=== PATIENT | male | born 1985 | race Caucasian/White ===

== ENCOUNTER 2024-10-30 15:59 | Outpatient (REF) | payer OTHER, SELFPAY ==
[2024-10-30 17:19] LABS: Erythrocyte Sedimentation Rate 2 MM/HR (0-15)
[2024-10-30 17:30] LABS: Thyroid Stimulating Hormone 2.06 uIU/mL (0.32-4.0)
--- OUTSIDE RECORDS SUMMARY | 2024-10-30 18:28 | XMS_ITS | Clinical Summary ---
Author Organization Formerly [facility] Address [address] [place] [address] Care Team Providers Care Evaluation Analyst Name Role Phone Pcp, No Primary Care Provider Unavailabl e Allergies No known active allergies Immunizations Immunization Administration Dates Next Due Hepatitis B 05/28/2020,07/16/2019,05/30/2019 Social History Tobacco Use Types Packs/Day Years Used Date Smoking Tobacco: Never Assessed Sex and Gender Information Value Date Recorded Sex Assigned at Not on file Legal Sex Male 7:56 AM EST Gender Identity Not on file Sexual Orientation Not on file Plan of Treatment Health Maintenance Due Date Last Done Comments Hepatitis C Virus Screening 1985 HIV Screening 1998 DTaP/Tdap/Td Vaccines (1 - Tdap) 2004 COVID-19 Vaccine (2023-2 5 season) 2024 Hepatitis B Vaccines Completed 05/28/2020, 07/16/2019, 05/30/2019 HPV Vaccines Aged Out No longer eligi ble based on patient's age to complete this topic Pneumococcal Vaccine: Pediatric (0-5 Years) and At-Risk Patients (6 to 49 Years) Aged Out No longer eligible b ased on patient's age to complete this topic Care Teams Evaluation Analyst Relationship Specialty Start Date End Date Pcp, No PCP - General General Medicine 09/13/16
--- OUTSIDE RECORDS SUMMARY | 2024-10-30 18:28 | XMS_ITS | Clinical Summary ---
Author Organization [facility] Address [address] [place] [address] Care Team Providers Care Hatchery Attendant Name Role Phone Unavailable Primary Care Provider Unavailabl e Source Comments PLEASE NOTE, if this patient is a minor, it may be UNLAWFUL to discuss sensitive information that is contained in these records (such as FAMILY PLANNING, MENTAL HEALTH or SUBSTANCE ABUSE) with the minor patient's parent or other person without the patient's specific authorization.[facility] Immunizations Immunization Administration Dates Next Due Moderna COVID-19 Vaccine, re d cap blue label, 12+ Primary Series 11/23/2020,10/26/2020 Social History Tobacco Use Types Packs/Day Years Used Date Smoking Tobacco: Never Assessed Social Connections Answer Date Recorded Social Connections and Isolation 0 10/26/2020 Financial Resource Strain Answer Date R ecorded Financial Resource Strain 0 2020 Stress Answer Date Recorded Stress 0 10/26/2020 Physical Activity Answer Date Recorded Physical Activity 0 10/26/2020 Food Insecurity Answer Date Recorded Food 0 10/26/2020 Transportation Needs Answer Date Record ed Transportation 0 10/26/2020 Housing Stability Answer Date Recorded Housing 0 10/26/2020 Safety and Environment Answer Date Tyrone rded Safety 0 10/26/2020 Utilities Answer Date Recorded Utilities 0 10/26/2020 Employment Answer Date Recorded Employment 0 10/26/2020 Sex and Gender Information Value Date Recorded Sex Assigned at Not on file Legal Sex Male 10:10 AM PDT Gender Identity Not on file Sexual Orientation Not on file Plan of Treatment Health Maintenance Due Date Last Done Comments Anxiety Screening 1985 Diabetes Screening 1985 Hepatitis C Screening 1985 Tobacco Screening 1985 HIV Screening 2000 Hypertension Screening (#1) 12/23/2003 Imm-DTaP/Tdap/Td (1 - Tdap) 2004 Imm-Hepatitis B (1 of 3 - 19 + 3-dose series) 2004 Vbo-FOCKS-17 ( season) 03/10/202411/23/ 021, 10/26/2020 Imm-Influenza (#1) 2024 Alcohol and Drug Screen 07/10/2024 Depression Annual Screen 07/10/2024 Insurance [facility] Member Subscriber Plan / Payer (Ef fective 2012-Present) Name:Tyshawn Duncan Relation to Subscriber:Self Name:Tyshawn Duncan Payer ID:[id number] Type:Indemnity Address: [facility] [id number] [place] [address]
--- OUTSIDE RECORDS SUMMARY | 2024-10-30 18:28 | XMS_ITS | Clinical Summary ---
Author Organization 175 [facility] Address [address] [place] [address] Phone Care Team Providers Care Collator Name Role Phone Jonathon Chavez MD Primary Care Provider [phone] Allergies No known active allergies Medications loperamide (IMODIUM) 2 mg capsule Take 1 Capsule by mouth 4 times daily as needed for Diarrhea. 4 Active naproxen (NAPROSYN) 500 mg tablet Take 1 Tablet by mouth 2 times daily as needed for Pain 10/23/19 25 Discontinu ed(Therapy completed) Active Problems Problem Noted Date Diagnosed Date Irritable bowel syndrome with diarrhea Mixed hyperlipidemia 11/24/2023 Transaminitis 11/24/2023 Vitamin D deficiency 11/24/2023 Encounters Date Type Department Care Team Description 10/22/2024 8:30 AM EDT Consult Endocrinology - [address] [phone] Lyubov Toussaint MD Decreased libido; Low testosterone 10/22/2024 7:30 AM EDT - 10/22/2024 11:59 PM EDT Hospital Encounter Radiology Department - [address] [phone] Fatty liver Discharge Disposition: Home or Self Care 10/01/2024 Telephone Gastroenterology - [place] [facility] [address] [place] [address] Christopher Childs PA 09/25/2024 9:23 AM EDT - 09/25/2024 11:59 PM EDT Hospital Encounter [facility] MRI [address] [place] [address] Decreased butt maker strength Discharge Disposition: Home or Self Care 09/10/2024 10:00 AM EST Consult Orthopedic Surgery - [place] 175 [facility] [address] [place] [address] Adrianna Blevins PA Decreased butt maker strength 09/03/2024 8:30 AM EST Office Visit Adult Medicine [address] [phone] Gwen Mims PA Adult general medical examination (Primary Dx); Mixed hyperlipidemia; Decreased libido; Irritable bowel syndrome with diarrhea; Transaminitis; Decreased butt maker strength; Multiple atypical skin moles; Low testosterone from Last 3 Months Immunizations Name Administration Dates Next Due Td Tetanus diptheria, preser vative free (Tenivac) 7yo and older 09/03/2024 Surgical History Surgery Date Site/Laterality Comments OTHER SURGICAL HISTORY 08/2006 PROCEDURE: HISTORICAL ARM SURGERY; COMMENT: left arm plate 6 screws Medical History Medical History Date Comments Hyperlipidemia DX:Hyperlipidemi a Irritable bowel syndrome DX:Irri table bowel syndrome Elevated liver enzymes DX:Elevat ed liver enzymes Family history of Crohn's disease DX:Family history of Crohn's disease Social History Tobacco Use Types Packs/Day Years Used Date Smoking Tobacco: Never Tobacco Cessation:Counseling Given: Not Answered Sex and Gender Information Value Date Recorded Sex Assigned at Not on file Legal Sex Male 2:37 PM EST Gender Identity Not on file Sexual Orientation Not on file Obstetrics History Last Filed Vital Signs Vital Sign Reading Time Taken Comments Blood Pressure 118/64 10/22/2024 8:36 AM EDT C Pulse 60 10/22/2024 8:36 AM EDT Temperature 36.3 ??C (97.3 ??F) 10/22/2024 8:36 AM ED T Respiratory Rate 18 09/03/2024 8:52 AM EST Oxygen Saturation 97% 10/22/2024 8:36 AM EDT Inhaled Oxygen Concentration - - Weight 118 kg (259 lb 3.2 oz) 10/22/2024 8:36 AM EDT Height 190.5 cm (6' 3 ) 10/22/2024 8:36 AM EDT Body Mass Index 32.4 10/22/2024 8:36 AM EDT Plan of Treatment Upcoming Encounters Date Type Department Care Team (Late st Contact Info) Description 12/05/2024 4:30 PM EDT Office Visit [facility] [address] [place] [address] Lyubov Toussaint MD [address] [place] [address] 01/14/2025 4:15 PM EDT Appointment [facility] Neurodiagnostic [address] [place] [address] 03/03/2025 8:00 AM EDT Office Visit Adult Medicine [facility] [address] [place], [place] [phone] Jonathon Chavez MD [address] [place] [phone] Health Maintenance Due Date Last Done Comments Pneumococcal Vaccine: Pediatrics (0 to 5 Years) and At-Risk Patients (6 to 64 Years) (1 of 2 - PCV) 2004 COVID-19 Vaccine (3 - Modern a risk series) 12/21/2020 11/23/2020, 10/26/2020 Depression Screening 08/27/2022 Social Influencers of Health Screening 08/27/2022 Influenza Vaccine (Season Ended) 2025 Cholesterol Screening (Lipid Panel) 09/03/2029 09/03/2024, 11/23/2023, 11/23/2023 DTaP,Tdap,and Td Vaccines (2 - Td or Tdap) 09/03/2034 09/03/2024 Hepatitis B Vaccines Completed 05/28/2020, 07/16/2019, 05/30/2019 Hepatitis C Screening Completed 09/03/2024 HIB Vaccines Aged Out No longer eligi ble based on patient's age to complete this topic HIV Screening Discontinued HPV Vaccines Aged Out No longer eligi ble based on patient's age to complete this topic Hepatitis A Vaccines Aged Out No long er eligible based on patient's age to complete this topic IPV Vaccines Aged Out No longer eligi ble based on patient's age to complete this topic MMR Vaccines Aged Out No longer eligi ble based on patient's age to complete this topic Meningococcal ACWY Vaccine Aged Out N o longer eligible based on patient's age to complete this topic Meningococcal B Vaccine Aged Out No l onger eligible based on patient's age to complete this topic RSV Immunization Patients Under 20 months Aged Out No longer eligible based on patient's age to complete this topic Varicella Vaccines Aged Out No longer eligible based on patient's age to complete this topic Procedures Procedure Name Priority Date/Time Associated Diagnosis Comments US ABDOMEN LIMITED Routine 10/22/2024 7: 56 AM EDT Fatty liver MR CERVICAL SPINE WO CONTRAST Routine 09/25/2024 10:56 AM EDT Decreased butt maker strength XR CERVICAL SPINE 4-5 VIEWS Routine 09/10/2024 10:48 AM EST Pain XR FOREARM BILAT Routine 09/10/2024 10:4 8 AM EST Pain CBC WITH AUTO DIFFERENTIAL Routine 09/03/2024 10:00 AM EST Adult general medical examination Mixed hyperlipidemia Decreased libido CBC AND DIFFERENTIAL Routine 09/03/2024 10:00 AM EST Adult general medical examination Mixed hyperlipidemia Decreased libido COMPREHENSIVE METABOLIC PANEL Routine 09/03/2024 10:00 AM EST Adult general medical examination Mixed hyperlipidemia Decreased libido THYROID STIMULATING HORMONE WITH REFLEX TO FREE T4 AND FREE T3 Routine 09/03/2024 10:00 AM EST Adult general medical examination Mixed hyperlipidemia Decreased libido LIPID PANEL WITH REFLEX TO DIRECT LDL Routine 09/03/2024 10:00 AM EST Adult general medical examination Mixed hyperlipidemia Decreased libido TESTOSTERONE FREE, BIOAVAILABLE AND TOTAL Routine 09/03/2024 10:00 AM EST Decreased libido HEPATITIS C ANTIBODY Routine 09/03/2024 10:00 AM EST Adult general medical examination from Last 3 Months Results * US Abdomen Limited (10/22/2024 7:56 AM EDT) Anatomical Region Laterality Modality Body Ultrasound 10/22/2024 10:2 7 AM EDT Impressions 10/22/2024 10:30 AM EDT 1. Hepatic steatosis -------- FINAL REPORT -------- Dictated By: Unruly Romero Dictated Date: 10/22/2024 10:27 ET Assigned Physician: Unruly Romero Reviewed and Electronically Signed By: Unruly Romero Signed Date: 10/22/2024 10:30 ET Workstation ID: [id number] Transcribed By: Self Edit Transcribed Date: 10/22/2024 10:27 ET Narrative 10/22/2024 10:30 AM EDT Exam: Right upper quadrant ultrasound/US Limited History: Fatty liver Technique: Esparza scale and color Doppler imaging was utilized. Comparison: Right upper quadrant ultrasound from 02/05/2024 FINDINGS: Liver: ??increasedin echotexture. The liver measures 18.2 cm.There is no evidence of intrahepatic biliary ductal dilation. There is no ascites. Gallbladder: ??no gallbladder stone, wall thickening or pericholecystic fluid. Common bile duct: measures 0.3 cm. Right kidney: measures 11.7 cm and is sonographically unremarkable Pancreas: The visualized pancreatic parenchyma is unremarkable. The pancreatic head and tail were not visualized due to overlying bowel gas. ?? Procedure Note Unruly Romero MD - 10/22/2024 Exam: Right upper quadrant ultrasound/US Limited History: Fatty liver Technique: Esparza scale and color Doppler imaging was utilized. Comparison: Right upper quadrant ultrasound from 02/05/2024 FINDINGS: Liver: increasedin echotexture. The liver measures 18.2 cm.There is noevidence of intrahepatic biliary ductal dilation. There is no ascites. Gallbladder: no gallbladder stone, wall thickening or pericholecysticfluid. Common bile duct: measures 0.3 cm. Right kidney: measures 11.7 cm and is sonographically unremarkable Pancreas: The visualized pancreatic parenchyma is unremarkable. Thepancreatic head and tail were not visualized due to overlying bowel gas. IMPRESSION: 1. Hepatic steatosis -------- FINAL REPORT -------- Dictated By: Unruly Romero Dictated Date: 10/22/2024 10:27 ET Assigned Physician: Unruly Romero Reviewed and Electronically Signed By: Unruly Romero Signed Date: 10/22/2024 10:30 ET Workstation ID: [id number] Transcribed By: Self Edit Transcribed Date: 10/22/2024 10:27 ET us Christopher RIVERS IMPamela US PROCEDURES Final Result * MR Cervical Spine wo Contrast (09/25/2024 10:56 AM EDT) Anatomical Region Laterality Modality C-spine, Spine Magnetic Resonan ce 09/25/2024 2:25 PM EDT Impressions 09/25/2024 2:27 PM EDT No focal disc protrusion, foraminal stenosis, or spinal canal stenosis in the cervical spine. -------- FINAL REPORT -------- Dictated By: CONCETTA GODFREY Dictated Date: 09/25/2024 14:25 ET Assigned Physician: CONCETTA GODFREY Reviewed and Electronically Signed By: CONCETTA GODFREY Signed Date: 09/25/2024 14:27 ET Workstation ID: [id number] Transcribed By: Self Edit Transcribed Date: 09/25/2024 14:25 ET Narrative 09/25/2024 2:27 PM EDT PROCEDURE: Cervical spine MRI INDICATION: Hand weakness TECHNIQUE: Multiplanar, multisequence MRI of the Cervical spine Without contrast. COMPARISON: ??No priors available. FINDINGS: Normal alignment. No fracture or suspicious marrow replacing lesion. Disc height and signal are preserved. Facet joints are normal. Cervical cord is normal in signal and morphology. ??No epidural collection or mass is seen within the spinal canal. Small right lateral paraspinal lipoma measuring 18 mm at the level of C3. ??Paraspinal muscles are otherwise normal. ??Major cervical flow voids are normal. ??Foramen magnum is normal. Findings by level: C2-C3: No focal disc protrusion, facet arthropathy, foraminal stenosis, or spinal canal stenosis. C3-C4: No focal disc protrusion, facet arthropathy, foraminal stenosis, or spinal canal stenosis. C4-C5: No focal disc protrusion, facet arthropathy, foraminal stenosis, or spinal canal stenosis. C5-C6: No focal disc protrusion, facet arthropathy, foraminal stenosis, or spinal canal stenosis. C6-C7: No focal disc protrusion, facet arthropathy, foraminal stenosis, or spinal canal stenosis. C7-T1: No focal disc protrusion, facet arthropathy, foraminal stenosis, or spinal canal stenosis. Procedure Note Concetta Godfrey MD - 09/25/2024 PROCEDURE: Cervical spine MRI INDICATION: Hand weakness TECHNIQUE: Multiplanar, multisequence MRI of the Cervical spine Withoutcontrast. COMPARISON: No priors available. FINDINGS: Normal alignment. No fracture or suspicious marrow replacing lesion. Disc height and signal are preserved. Facet joints are normal. Cervical cord is normal in signal and morphology. No epidural collectionor mass is seen within the spinal canal. Small right lateral paraspinal lipoma measuring 18 mm at the level of C3.Paraspinal muscles are otherwise normal. Major cervical flow voids arenormal. Foramen magnum is normal. Findings by level: C2-C3: No focal disc protrusion, facet arthropathy, foraminal stenosis, orspinal canal stenosis. C3-C4: No focal disc protrusion, facet arthropathy, foraminal stenosis, orspinal canal stenosis. C4-C5: No focal disc protrusion, facet arthropathy, foraminal stenosis, orspinal canal stenosis. C5-C6: No focal disc protrusion, facet arthropathy, foraminal stenosis, orspinal canal stenosis. C6-C7: No focal disc protrusion, facet arthropathy, foraminal stenosis, orspinal canal stenosis. C7-T1: No focal disc protrusion, facet arthropathy, foraminal stenosis, orspinal canal stenosis. IMPRESSION: No focal disc protrusion, foraminal stenosis, or spinal canal stenosis inthe cervical spine. -------- FINAL REPORT -------- Dictated By: CONCETTA GODFREY Dictated Date: 09/25/2024 14:25 ET Assigned Physician: CONCETTA GODFREY Reviewed and Electronically Signed By: CONCETTA GODFREY Signed Date: 09/25/2024 14:27 ET Workstation ID: [id number] Transcribed By: Self Edit Transcribed Date: 09/25/2024 14:25 ET Adrianna RIVERS IMG MRI PROCEDURES Final Resu lt * XR Cervical Spine 4-5 Views (09/10/2024 10:48 AM EST) Anatomical Region Laterality Modality Spine, C-spine Computed Radiogr aphy Narrative 09/11/2024 8:49 AM EST Date of Visit: 09/10/2024 Reason for visit: Upper extremity weakness Views: AP, lateral oblique cervical spine Comparison: None Findings: No fracture, dislocation or lytic lesions. ??Vertebral heights and joint spaces maintained There is a bone spur anteriorly C6 Impression: Overall normal cervical spine x-ray. Adrianna RIVERS IMG XR PROCEDURES Final Resul t * XR Forearm bilat (09/10/2024 10:48 AM EST) Anatomical Region Laterality Modality Upper Extremities, Elbow Bilateral Compute d Radiography Narrative 09/11/2024 8:48 AM EST Date of Visit: 09/10/2024 Reason for visit: Arm pain and weakness Views: AP and lateral bilateral forearms Comparison: None Findings: No fracture, dislocation or lesions. ??Right forearm abnormality seen. ??No ??arthritis. ??Left forearm there is hardware at the distal radius. ??No loosening. ??No malalignment. ??No arthritis. ??There is no chondral damage on the left. Impression: Stable hardware left distal radius. ??No other abnormality seen Adrianna RIVERS IMG XR PROCEDURES Final Resul t * Hepatitis C antibody (09/03/2024 10:00 AM EST) Pathologist [facility] Hepatitis C Antibody Negative Negative LAB CHEMISTRY METHOD 09/03/2024 5:00 PM EST [facility] Blood Venous blood specimen / Unknown Venipuncture / Unknown 09/03/2024 10:00 AM EST 09/03/2024 10:00 AM EST Gwen RIVERS LAB BLOOD ORDERABLES Fin al Result Performing Organization Address [facility]/ZIP Co de Phone Number [facility] [address] [place] [address], [place] [phone] * Thyroid stimulating hormone with reflex to free t4 and free t3 (09/03/2024 10:00 AM EST) Pathologist [facility] TSH 3.80 0.40 - 4.00 mcIU/mL LAB CHEMISTRY METHOD 09/03/2024 4:21 PM [facility] Blood Venous blood specimen / Unknown Venipuncture / Unknown 09/03/2024 10:00 AM EST 09/03/2024 10:00 AM EST Gwen RIVERS LAB BLOOD ORDERABLES Fin al Result Performing Organization Address [facility]/ZIP Co de Phone Number [facility] [address] [place] [address], [place] [phone] * (ABNORMAL) Lipid panel with reflex to direct LDL (09/03/2024 10:00 AM EST) Cholesterol 205(H) 0 - 200 mg/dL LAB CHEMISTRY METHOD 09/03/2024 12:32 PM [facility] Triglycerides 349(H) 0 - 150 mg/dL LAB CHEMISTRY METHOD 09/03/2024 12:32 PM [facility] HDL 37(L) >=40 mg/dL LAB CHEMISTRY METHOD 09/03/2024 12:32 PM [facility] LDL Calculated 98 0 - 100 mg/dL LAB CHEMISTRY METHOD 09/03/2024 12:32 PM [facility] VLDL Cholesterol Arsenio 69.8 mg/dL LAB CHEMISTRY METHOD 09/03/2024 12:32 PM [facility] Non HDL Chol. (LDL+VLDL) 168(H) <145 mg/dL LAB CHEMISTRY METHOD 09/03/2024 12:32 PM EST [facility] Chol/HDL Ratio 5.5(H) 0.0 - 4.4 LAB CHEMISTRY METHOD 09/03/2024 12:32 PM [facility] Blood Venous blood specimen / Unknown Venipuncture / Unknown 09/03/2024 10:00 AM EST 09/03/2024 10:00 AM EST Gwen RIVERS LAB BLOOD ORDERABLES Fin al Result [facility] [address] [place] [address], * (ABNORMAL) Testosterone free, bioavailable and total (09/03/2024 10:00 AM EST) Testosterone 207(L) 229 - 902 ng/dL LAB CHEMISTRY METHOD 09/03/2024 12:57 PM [facility] Testosterone, Free 6.0 4.6 - 22.4 ng/dL LAB CHEMISTRY METHOD 09/03/2024 12:57 PM [facility] Testosterone, Bioavailable 125 110 - 575 ng/dL LAB CHEMISTRY METHOD 09/03/2024 12:57 PM [facility] Sex Hormone Binding 16.2 See Comment nmol/L LAB CHEMISTRY METHOD 09/03/2024 12:57 PM [facility] Comment: FEMALES: ??pre-menopausal ?? 10.8 - >180 ??post-menopausal ??23.2 - 159.1 MALES: ?? 21-49 years ? 14.6 - 94.6 ?? 50-89 years ? 21.6 - 113.1 CHILDREN: ??No established reference range Over the counter supplements containing high doses of biotin may interfere with this assay. ??If interference is suspected, patients should be retested after refraining from biotin supplements for 72 hours. Albumin 3.8 3.2 - 5.0 g/dL LAB CHEMISTRY METHOD 09/03/2024 12:57 PM [facility] Blood Venous blood specimen / Unknown Venipuncture / Unknown 09/03/2024 10:00 AM EST 09/03/2024 10:00 AM EST Gwen RIVERS LAB BLOOD ORDERABLES Fin al Result [facility] [address] [place] [address], * (ABNORMAL) CBC auto differential (09/03/2024 10:00 AM EST) WBC 4.4(L) 4.8 - 10.8 K/mcL LAB HEMETOLOGY METHOD 09/03/2024 12:42 PM [facility] RBC 5.40 4.50 - 5.50 M/mcL LAB HEMETOLOGY METHOD 09/03/2024 12:42 PM [facility] Hemoglobin 15.9 13.5 - 17.5 g/dL LAB HEMETOLOGY METHOD 09/03/2024 12:42 PM [facility] Hematocrit 48.0 42.0 - 54.0 % LAB HEMETOLOGY METHOD 09/03/2024 12:42 PM [facility] MCV 88.9 79.0 - 98.0 FL LAB HEMETOLOGY METHOD 09/03/2024 12:42 PM [facility] MCH 29.4 27.0 - 32.0 pcg LAB HEMETOLOGY METHOD 09/03/2024 12:42 PM [facility] MCHC 33.1 32.0 - 37.0 g/dL LAB HEMETOLOGY METHOD 09/03/2024 12:42 PM [facility] RDW 13.2 11.0 - 15.0 % LAB HEMETOLOGY METHOD 09/03/2024 12:42 PM [facility] Platelets 250 130 - 400 K/mcL LAB HEMETOLOGY METHOD 09/03/2024 12:42 PM [facility] MPV 9.8 7.0 - 11.0 FL LAB HEMETOLOGY METHOD 09/03/2024 12:42 PM [facility] NRBC 0.0 <1.0 % LAB HEMETOLOGY METHOD 09/03/2024 12:42 PM [facility] NRBC Absolute 0.00 <0.10 K/mcL LAB HEMETOLOGY METHOD 09/03/2024 12:42 PM [facility] Neutrophils Relative 42.7 % LAB HEMETOLOGY METHOD 09/03/2024 12:42 PM [facility] Lymphocytes Relative 47.7 % LAB HEMETOLOGY METHOD 09/03/2024 12:42 PM [facility] Monocytes Relative 6.9 % LAB HEMETOLOGY METHOD 09/03/2024 12:42 PM [facility] Eosinophils Relative 1.6 % LAB HEMETOLOGY METHOD 09/03/2024 12:42 PM [facility] Basophils Relative 0.9 % LAB HEMETOLOGY METHOD 09/03/2024 12:42 PM [facility] Immature Granulocytes Relative 0.2 % LAB HEMETOLOGY METHOD 09/03/2024 12:42 PM [facility] Neutrophils Absolute 1.86 1.50 - 7.00 K/mcL LAB HEMETOLOGY METHOD 09/03/2024 12:42 PM [facility] Lymphocytes Absolute 2.08 1.00 - 5.00 K/mcL LAB HEMETOLOGY METHOD 09/03/2024 12:42 PM [facility] Monocytes Absolute 0.30 0.20 - 1.00 K/mcL LAB HEMETOLOGY METHOD 09/03/2024 12:42 PM [facility] Eosinophils Absolute 0.07 0.00 - 0.50 K/[facility] HEMETOLOGY METHOD 09/03/2024 12:42 PM [facility] Basophils Absolute 0.04 0.00 - 0.20 K/[facility] HEMETOLOGY METHOD 09/03/2024 12:42 PM [facility] Immature Granulocytes Absolute 0.01 0.00 - 0.03 K/[facility] HEMETOLOGY METHOD 09/03/2024 12:42 PM [facility] Blood Venous blood specimen / Unknown Venipuncture / Unknown 09/03/2024 10:00 AM EST 09/03/2024 10:00 AM EST Gwen RIVERS LAB BLOOD ORDERABLES Fin al Result [facility] [address] [place] [address], * (ABNORMAL) Comprehensive metabolic panel (09/03/2024 10:00 AM EST) Sodium 145 133 - 145 mmol/L LAB CHEMISTRY METHOD 09/03/2024 12:32 PM [facility] Potassium 4.2 3.5 - 5.5 mmol/L LAB CHEMISTRY METHOD 09/03/2024 12:32 PM [facility] Chloride 112(H) 96 - 110 mmol/L LAB CHEMISTRY METHOD 09/03/2024 12:32 PM [facility] CO2 26 21 - 32 mmol/L LAB CHEMISTRY METHOD 09/03/2024 12:32 PM [facility] Anion Gap 7 3 - 11 LAB CHEMISTRY METHOD 09/03/2024 12:32 PM [facility] Glucose 90 70 - 100 mg/dL LAB CHEMISTRY METHOD 09/03/2024 12:32 PM [facility] BUN 16 5 - 25 mg/dL LAB CHEMISTRY METHOD 09/03/2024 12:32 PM [facility] Creatinine 1.01 0.70 - 1.30 mg/dL LAB CHEMISTRY METHOD 09/03/2024 12:32 PM [facility] eGFR 98 >=60 mL/min/1. 73m2 LAB CHEMISTRY METHOD 09/03/2024 12:32 PM [facility] Comment:Calculation based on the??Chronic Kidney Disease Epidemiology Collaboration (CKD-EPI) equation refit??without adjustment for race. BUN/Creatinine Ratio 15.8 LAB CHEMISTRY METHOD 09/03/2024 12:32 PM [facility] Calcium 9.6 8.5 - 10.5 mg/dL LAB CHEMISTRY METHOD 09/03/2024 12:32 PM [facility] AST (SGOT) 72(H) 10 - 42 unit/L LAB CHEMISTRY METHOD 09/03/2024 12:32 PM [facility] ALT (SGPT) 155(H) 10 - 60 unit/L LAB CHEMISTRY METHOD 09/03/2024 12:32 PM [facility] Alkaline Phosphatase 129(H) 42 - 121 unit/L LAB CHEMISTRY METHOD 09/03/2024 12:32 PM [facility] Total Protein 6.8 6.0 - 8.0 g/dL LAB CHEMISTRY METHOD 09/03/2024 12:32 PM [facility] Albumin 3.8 3.2 - 5.0 g/dL LAB CHEMISTRY METHOD 09/03/2024 12:32 PM [facility] Total Bilirubin 0.6 0.0 - 1.4 mg/dL LAB CHEMISTRY METHOD 09/03/2024 12:32 PM [facility] Blood Venous blood specimen / Unknown Venipuncture / Unknown 09/03/2024 10:00 AM EST 09/03/2024 10:00 AM EST us Gwen RIVERS LAB BLOOD ORDERABLES Fin al Result [facility] [address] [place] [address], [place] [phone] from Last 3 Months Insurance [facility] [employer] Care Teams Collator Relationship Specialty Start Date End Date Jonathon Chavez MD [address] [place] [id number] PCP - General 11/21/23
[2024-11-04 21:59] LABS: Aldolase 11.6 U/L (<=8.1)
[2024-11-06 01:49] LABS: Acetylcholine Receptor Binding <0.30 nmol/L
[2024-11-06 14:03] LABS: Acetylcholine Recept. Blocking <15 (<15)
[2024-11-07 18:02] LABS: Acetylcholine Recep Modulating <1
== END 2024-10-30 16:00 | disposition home or self-care (01) ==
LOC: HO.LAB 15:59
PROVIDERS: Visit Provider Psychiatry & Neurology Neurology
DX: G71.02 Facioscapulohumeral muscular dystrophy (principal)
CPT/HCPCS: 36415; 82085; 82550; 84443; 85652; 86041; 86042; 86043